=== PATIENT | male | born 1955 | race Caucasian/White ===

== ENCOUNTER 2024-05-27 05:29 | Day surgery (SDC) | payer MEDICARE ==
[~2024-05-27] VITALS: Ht 177.8 cm; Wt 185.7 kg
[2024-05-27] VITALS (14 sets, daily range): BP systolic 106–147; BP diastolic 64–92; PULSE 52–82; TEMP 97.1–98.6
[2024-05-27] MEDS ORDERED: Pregabalin 150 MG CAP PREOP X1 PO SCH (06:00)
[2024-05-27] MEDS ORDERED: Celecoxib 400 MG PREOP X1 PO SCH (06:00)
[2024-05-27] MEDS ORDERED: oxyCODONE ER (12-HR) 20 MG TAB PREOP X1 PO SCH (06:00)
[2024-05-27] MEDS ORDERED: LR 1,000 ML IV SCH (06:00)
[2024-05-27] MEDS ORDERED: ZYLOPRIM 300MG300 MG PO (06:33)
[2024-05-27] MEDS ORDERED: TENORMIN 2525 MG/TAB PO (06:33)
[2024-05-27] MEDS ORDERED: NORVASC 10MG10 MG PO (06:33)
[2024-05-27] MEDS ORDERED: SYNTHROID0.088 MG/T PO (06:34)
[2024-05-27] MEDS ORDERED: BENICAR40 MG PO (06:34)
[2024-05-27] MEDS ORDERED: HCTZ 25MG TAB25 MG PO (06:34)
[2024-05-27] MEDS ORDERED: NS 20 ML IV ONE (06:43)
[2024-05-27] MEDS ORDERED: Lidocaine PF 2% (20 MG/ML) 5 ML VIAL ONE (06:43)
[2024-05-27] MEDS ORDERED: Midazolam 2 MG/2 ML VIAL ONE (06:44)
[2024-05-27] MEDS ORDERED: Tranexamic Acid 1,000 MG/10 ML VIAL ONE (06:54)
[2024-05-27] MEDS ORDERED: droPERidol 2.5 MG/ML 2 ML VIAL IV PRN (07:30)
[2024-05-27] MEDS ORDERED: fentaNYL 50 MCG/ML 1 ML SYRINGE/VIAL [PACU/SDC ONLY] IV PRN (07:30)
[2024-05-27] MEDS ORDERED: HYDROmorphone 1 MG/1 ML SYRINGE [PACU/SDC ONLY] IV PRN (07:30)
[2024-05-27] MEDS ORDERED: hydrALAZINE 20 MG/ML 1 ML VIAL IV PRN (07:30)
[2024-05-27] MEDS ORDERED: Ondansetron 4 MG/2 ML VIAL IV PRN (07:30)
[2024-05-27] MEDS ORDERED: Magnes Hydrox (MOM) 80 MG/ML 30 ML CUP PO PRN (08:45)
[2024-05-27] MEDS ORDERED: Promethazine 25 MG TAB PO PRN (08:45)
[2024-05-27] MEDS ORDERED: Morphine 4 MG/ML VIAL IV PRN (08:45)
[2024-05-27] MEDS ORDERED: Naloxone 0.4 MG/ML VIAL IV PRN (08:45)
[2024-05-27] MEDS ORDERED: oxyCODONE 5 MG TAB PO PRN (08:45)
[2024-05-27] MEDS ORDERED: traMADol 50 MG TAB PO PRN (08:45)
[2024-05-27] MEDS ORDERED: Promethazine 50 MG/ML 1 ML VIAL IM PRN (08:45)
[2024-05-27] MEDS ORDERED: Celecoxib 200 MG CAP PO SCH (09:00)
[2024-05-27] MEDS ORDERED: Olmesartan 40 MG **** subs to Losartan 100 MG PO SCH (09:00)
[2024-05-27] MEDS ORDERED: amLODIPine 10 MG TAB PO SCH (09:00)
[2024-05-27] MEDS ORDERED: Atenolol 25 MG TAB PO SCH (09:00)
[2024-05-27] MEDS ORDERED: Allopurinol 300 MG TAB PO SCH (09:00)
[2024-05-27] MEDS ORDERED: hydroCHLOROthiazide 25 MG TAB PO SCH (09:00)
[2024-05-27] MEDS ORDERED: Acetaminophen 500 MG TAB PO SCH (09:32)
--- NOTE | 2024-05-27 09:35 | NUR ---
Pt up from PACU. MAX Grigsby settled Pt. Assessment complete. Med Rec complete. Pt unable to feel legs at this time, but can wiggle toes. Pt denies pain, n/v. tolerating ice chips at this time. Oriented Pt to room. Call light in reach.
--- NOTE | 2024-05-27 09:49 | NUR ---
PT TO ROOM 343 PER BED WITH REPORT FROM SUZY SANTANA @[id number]. VSS, PT IS A/O X4, LUNGS CTA, BOWEL SOUNDS PRESENT. DRESSING TO RIGHT KNEE CDI WITH OCCLUISIVE SUDARSHAN WRAP OVER INCISION. SCDS BILATERALLY. FAMILY AT BEDSIDE. IV TO LFA. UPDATED PRIMARY NURSES LITTLE AND RUBEN.
[2024-05-27] MEDS ORDERED: ceFAZolin 2 G in Water For Injection,Sterile 20 ML IV SCH (15:00)
[2024-05-27] MEDS ORDERED: dexAMETHasone 10 MG/ML VIAL IV SCH (16:00)
[2024-05-27] MEDS ORDERED: ASPI325T6 PO (16:37)
[2024-05-27] MEDS ORDERED: ULTRAM 50MG TAB50 MG PO (16:38)
[2024-05-27] MEDS ORDERED: CELEBREX 200MG200 MG PO (16:38)
[2024-05-27] MEDS ORDERED: TYLENOL 500MG500 MG PO (16:39)
[2024-05-27] MEDS ORDERED: ROXICODONE 55 MG/TAB PO (16:39)
[2024-05-27] MEDS ORDERED: Sennosides/Docusate 8.6-50 MG TAB PO SCH (21:00)
--- NOTE | 2024-05-27 21:48 | NUR ---
Patient assessed around 2014. Alert and oriented x 4, and able to make needs known. Given PRN Ultram for pain as requested. Peripheral INT to left hand. Denies SOB and dyspnea. LS CTA. Has JUANY and did not bring CPAP. Does not want one here. Offered to put on oxygen at night to help but declined. HRR. BSAx4. Dressing to right knee CDI. Ice to site. Patient ambulated with this nurse in hallway with gait belt and walker around 2114. Patient assisted back to bed. Knee immoblizer placed to right letg. Voices no further questions, needs, or concerns at this time. In bed with call light within reach.
[2024-05-28] VITALS (8 sets, daily range): BP systolic 104–136; BP diastolic 61–78; PULSE 70–77; TEMP 97.7–98.4
--- NOTE | 2024-05-28 05:57 | NUR ---
Patient given scheduled Acetaminophen per orders. Took PRN Ultram twice this shift. Dressing to right knee CDI. Wore knee immobilizer during the night. Voices no questions, needs, or concerns at this time. In bed with call light within reach.
--- NOTE | 2024-05-28 06:45 | NUR ---
Pt sitting up in bed. Denies needs at this time. Call light in reach.
[2024-05-28 07:12] LABS: HEMATOCRIT 51.9 % (42.0-52.0); HEMOGLOBIN 17.1 g/dl (13.5-18.0)
[2024-05-28] MEDS ORDERED: Losartan 50 MG TAB PO SCH (09:00)
--- NOTE | 2024-05-28 09:00 | NUR ---
Pt sitting up in bed. A&Ox4. VSS. S1S2. Clear lungs in RA. ABD round, soft, non-tender with audible bowel sounds. Palpable pulses in all extremities. R knee has bulky dressing, CDI. IV in L hand is patent, INT. Pt reports mild pain in R knee, acceptable to continue with scheduled tylenol. Pt denies n/v, headache, dizziness. No further needs at this time. Call light in reach and bed alarm on.
--- NOTE | 2024-05-28 11:00 | NUR ---
Changed patients bulky dressing to aquacell. Incision well approximated and no drainage. Removed IV from left hand. Applied pressure dressing over hand. Education provided regarding discharge instructions. Pt's family notified about discharge. Call light within reach. No further needs.
--- NOTE | 2024-05-28 12:00 | NUR ---
Pt transported to vehicle via wheelchair. Family and friends driving. No further questions.
--- NOTE | 2024-05-28 12:20 | NUR ---
Reveiwed charting completed by JOHNATHAN Scott. Agree to assessments and notes.
--- NOTE | 2024-05-28 12:43 | NUR ---
mechanical maintenance worker spoke with patient to discuss discharge planning. Patient lives in [place] with his , Dorina, P# [phone]. PCP is Barb Paulino. [facility]. Insurance is Medicare A and B, AARP. DPOA-HC is Dorina. DME is walker, cane, CPAP, grab bars, handicap accessible bathroom. Patient reports he is independent with ADLS and has a form of transportation to and from appointments. Patient would like to return home at time of discharge and reports he has a form of transportation to get to and from appointments. Patient reports he has outpatient pt scheduled with [facility] on the . SW attempted to contact the PT with the [facility], P# [phone], no answer. SW left detailed voicemail to ensure they received orders from Dr. Hadley, if not, she would need to obtain fax number from them to send orders to. Discharge plan: Home with OP PT
== END 2024-05-28 12:00 | disposition home or self-care (01) ==
LOC: SDCO 05:29 → SURG 09:35 → SDCO 14:15
PROVIDERS: Physician Assistant
DX: M17.11 Unilateral primary osteoarthritis, right knee (principal); G47.33 Obstructive sleep apnea (adult) (pediatric); K21.9 Gastro-esophageal reflux disease without esophagitis; E66.01 Morbid (severe) obesity due to excess calories
CPT/HCPCS: OP; A6197; C1713; C1776; J0688; J0690; J1100; J2250; J2704; J7120